=== PATIENT | male | born 1990 | race Two or more races ===

== ENCOUNTER → 2024-05-26 | Outpatient (CLI) | payer MEDICAID, SELFPAY ==
--- NOTE | 2024-05-26 09:10 | XR_ITS ---
Examination: PA lateral chest 2 views Technique: Upright PA lateral chest 2 views Exam date and time: 04/04/2024 0918 hrs. Comparison January 01, 2023 Indications: Left-sided chest pain 3 years Findings: Mild enlargement cardiac contour No pneumonia or pulmonary edema Increased AP dimension chest Impression: Mild enlargement cardiac contour No pneumonia or pulmonary edema
== END | disposition home or self-care (01) ==
PROVIDERS: PCP Family Medicine; Referring Provider Family Medicine; Visit Provider Family Medicine
DX: I51.7 Cardiomegaly (principal)
CPT/HCPCS: 71046

== ENCOUNTER 2024-07-15 15:01 | Emergency (ER) | payer MEDICAID, SELFPAY ==
--- NOTE | 2024-07-15 15:03 | EKG_ITS ---
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
[2024-07-15 15:05] VITALS: BMI 58.8
[2024-07-15 15:11] VITALS: BP 142/96; PULSE 86; RESP 18; TEMP 37.5; O2SAT 95
--- NOTE | 2024-07-15 15:16 | XR_ITS ---
Examination: PA lateral chest 2 views TECHNIQUE: Upright PA lateral chest 2 views Exam date and time: July 15, 2024 1633 hours INDICATIONS: Chest pain today. FINDINGS: Poor inspiratory effort chest x-ray Normal heart size No pneumonia or pulmonary edema IMPRESSION: No pneumonia or pulmonary edema
--- NOTE | 2024-07-15 15:17 | PD.EDRME ---
Rapid Medical Screening Exam RME Arrival date/time: 07/15/24 15:01 33-year-old male presents to the emergency department today for complaints of palpitations and chest pressure today Chief Complaint: Chest Pain Time Seen by Provider: 07/15/24 15:07 Vital signs: Vital Signs Temperature 99.5 F 07/15/24 15:11 Pulse Rate 86 07/15/24 15:11 Respiratory Rate 18 07/15/24 15:11 Blood Pressure 142/96 H 07/15/24 15:11 Pulse Oximetry (%) 95 07/15/24 15:11 Oxygen Delivery Method Room Air 07/15/24 15:11
[2024-07-15 16:13] LABS: Basophils # (Auto) 0.1 Thou/mm3 (0.0-0.2); Basophils % (Auto) 1 % (0-2.5); Eosinophils # (Auto) 0.3 Thou/mm3 (0.0-0.5); Eosinophils % (Auto) 3 % (0-10); Hematocrit 45.8 % (41.0-53.0); Hemoglobin 16.2 g/dL (13.5-16.0); Immature Granulocytes % (Auto) 1 % (0-0); Immature Granulocytes Auto 0.05 Thou/mm3 (0.00-0.00); Lymphocytes % (Auto) 23 % (10-50); Mean Corpuscular HGB Conc 35.4 g/dl (31.0-37.0); Mean Corpuscular Hemoglobin 28.1 pg (25.0-35.0); Mean Corpuscular Volume 79 fL (80-100); Monocytes # (Auto) 0.6 Thou/mm3 (0.0-0.8); Monocytes % (Auto) 7 % (0-12); Neutrophils # (Auto) 5.9 Thou/mm3 (1.8-7.7); Neutrophils % (Auto) 66 % (37-80); Nucleated Red Blood Cell % 0 /100 WBC (0); Platelet Count 300 Thou/mm3 (140-440); RDW Standard Deviation 37.7 fL (35.1-43.9); Red Blood Count 5.77 Miln/mm3 (4.50-5.90); White Blood Count 8.9 Thou/mm3 (3.8-10.6)
[2024-07-15 16:13] LABS: Collection Type, Urine Clean Catch
[2024-07-15 16:23] LABS: Amphetamine/Methamp Scrn,U Negative (Negative); Barbiturate Screen,Urine Negative (Negative); Benzodiazepines Screen,Urine Negative (Negative); Benzoylecgonine Screen, Ur Negative (Negative); Fentanyl Screen,Urine Negative (Negative); Opiate Screen,Urine Negative (Negative); THC Screen,Urine Negative (Negative)
[2024-07-15 16:34] LABS: Bilirubin,Urine Negative (Negative); Blood,Urine Negative (Negative); Clarity,Urine Clear (Clear/Hazy); Color,Urine Lt-Yellow (Lt Yel-Yel); Glucose, Urine Negative (Negative); Ketones,Urine 1+ (Negative); Leukocyte Esterase,Urine Negative (Negative); Nitrite,Urine Negative (Negative); PH,Urine 6.5 (5.0-7.0); Protein,Urine Negative (Neg - Trace); RBC,Urine 5 /hpf (0-3); Specific Gravity,Urine 1.029 (1.001-1.035); Squamous Epithelial Cell,Urine 1 /hpf (0-5); WBC,Urine 5 /hpf (0-5)
[2024-07-15 16:35] LABS: B-Type Natriuretic Peptide < 20 pg/mL (0-100)
[2024-07-15 16:36] LABS: Alanine Aminotransferase 22 U/L (10-49); Albumin, Serum 4.6 gm/dL (3.5-5.0); Albumin/Globulin Ratio 1.7 (1.2-2.2); Alkaline Phosphatase 92 U/L (46-116); Anion Gap 8 (7-16); Aspartate Amino Transferase 17 U/L (0-34); BUN/Creatinine Ratio 15 Ratio (12-20); Bilirubin,Total 0.9 mg/dL (0.3-1.2); Blood Urea Nitrogen 17 mg/dL (9-23); Calcium 9.5 mg/dL (8.3-10.6); Calcium (Corrected) 9.5 mg/dL (8.5-10.1); Chloride 107 mMol/L (98-107); Creatinine (Component) 1.1 mg/dL (0.6-1.3); Estimated Creatinine Clearance 177.2 mL/min (>60); Globulin 2.7 gm/dL (2.3-3.5); Glucose 93 mg/dL (74-106); Magnesium 1.9 mg/dL (1.6-2.6); Osmolality,Calculated 282 (275-295); Sodium 141 mMol/L (136-145); Total Protein 7.3 gm/dL (5.7-8.2); Troponin I < 0.002 ng/mL (0.0-0.045); eGFR > 60 See Note
[2024-07-15 19:28] VITALS: BP 129/83; PULSE 77; RESP 18; TEMP 36.9; O2SAT 99
--- NOTE | 2024-07-15 19:37 | PD.EDADULT ---
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 The patient never had an angio gram or other intervention. Patient is awake alert oriented denies nausea vomiting headache shortness of breath or difficulty breathing. RME / HPI RME / HPI narrative: 07/15/24 15:01 33-year-old male presents to the emergency department today for complaints of palpitations and chest pressure today Related Data Previous Rx's ?Medication ?Instructions ?Recorded ascorbic acid (vitamin C) 250 mg 500 mg (2 x 250 mg) PO BID #60 tabs 03/26/23 tablet (Vitamin C) sennosides 8.6 mg tablet (Senna 8.6 mg PO QDAY #15 tabs 03/26/23 Lax) zinc sulfate 50 mg zinc (220 mg) 220 mg (4.4 x 50 mg zinc (220 mg)) 03/26/23 capsule PO QDAY #30 caps cephalexin 500 mg tablet 500 mg PO TID #21 tabs 09/27/23 IBU 800 mg tablet (ibuprofen) 800 mg PO Q6H PRN pain #30 tabs 10/13/23 ondansetron 4 mg disintegrating 4 mg PO Q8H PRN nausea and 10/13/23 tablet vomiting #10 tabs Allergies Allergy/AdvReac Type Severity Reaction Status Date / Time No Known Allergies Allergy Verified 10/13/23 16:12 Review of Systems Review of Systems Narrative Review of Systems: GEN: No fever, no chills, no weight loss EYES: No discharge, no visual changes, no pain HEENT: No ear pain, no congestion, no sore throat PULM: No shortness of breath, no cough, no congestion CV: + chest pain, no dyspnea on exertion, no palpitations GI: No nausea, no vomiting, no diarrhea, no pain, no constipation : No frequency, no urgency, no dysuria MUSC/SKEL: No joint pain, no back pain SKIN: No rash PSYCH: No hallucinations, no depression HEME/LYMPH: No easy bleeding or bruising tendencies NEURO: No weakness, no headache Past Medical History Past Medical History NEUROLOGIC: Negative Seizures CARDIAC: Negative Cardiac Disorders or Congestive Heart Failure RESPIRATORY: Negative Chronic Obstructive Pulmonary Disease (COPD) or Asthma GENITOURINARY: Negative Renal Disease ENDOCRINE: Negative Diabetes Mellitus Type 1 or Diabetes Mellitus Type 2 HEMATOLOGIC: Negative Sickle Cell Disease Social History SMOKING STATUS: Former smoker SECOND HAND EXPOSURE: No SUBSTANCE USE: does not use ED Exam Narrative Physical exam: [General: Morbidly obese not in cot no acute distress Head normocephalic HEENT: Within acceptable limits Neck is supple nontender Chest equal chest rise nontender to palpation Respiratory: Clear to auscultation no wheezes crackles or rubs CV: Rate rhythm is regular no murmurs rubs or clicks Abdomen is grossly distended secondary to body habitus soft nontender no masses positive bowel sounds all 4 quadrants Back: No CVA tenderness no spinous process tenderness from cervical spine thoracic and lumbar spine Skin: Intact no petechiae rash induration ulceration or crepitus Extremities: Moving all extremity against resistance cap refill less than 2 seconds neurosensory intact Neuro: Awake alert oriented x3 Glascow coma 15 no focal deficits] Course Quality Measures none Orders Category Date Time Status EKG (ED ONLY) *Do not use* NOW Care 07/15/24 15:03 Completed EKG (ED Only) Stat Exams 07/15/24 15:03 Draft XR chest 2V Stat Exams 07/15/24 15:16 Completed B-Type Natriuretic Peptide Stat Lab 07/15/24 15:49 Completed CBC Stat Lab 07/15/24 15:49 Completed Comprehensive Metabolic Panel Stat Lab 07/15/24 15:49 Completed Drug Screen,Urine Stat Lab 07/15/24 15:59 Completed Magnesium Stat Lab 07/15/24 15:49 Completed Troponin I Stat Lab 07/15/24 15:49 Completed Urinalysis Stat Lab 07/15/24 15:59 Completed Vital Signs Vital signs: Vital Signs Temperature 99.5 F 07/15/24 15:11 Pulse Rate 86 07/15/24 15:11 Respiratory Rate 18 07/15/24 15:11 Blood Pressure 142/96 H 07/15/24 15:11 Pulse Oximetry (%) 95 07/15/24 15:11 Oxygen Delivery Method Room Air 07/15/24 15:11 Discharge Plan Plan Patient Disposition: HOME (Self Care) Patient condition on transfer: Stable Prescriptions/Referrals Prescriptions/Med Rec: No Action sennosides [Senna Lax] 8.6 mg Tablet 8.6 mg PO QDAY Qty: 15 0RF ascorbic acid (vitamin C) [Vitamin C] 250 mg Tablet 500 mg PO BID Qty: 60 0RF zinc sulfate 50 mg zinc (220 mg) Capsule 220 mg PO QDAY Qty: 30 0RF ibuprofen [IBU] 800 mg tablet 800 mg PO Q6H PRN (Reason: pain) Qty: 30 0RF ondansetron 4 mg tablet,disintegrating 4 mg PO Q8H PRN (Reason: nausea and vomiting) Qty: 10 0RF cephalexin 500 mg tablet 500 mg PO TID Qty: 21 0RF Referrals: Rachid Durán MD [Primary Care Provider] - In 1 week Problem List Clinical Impression: Chest pain Patient/Caregiver Discharge Instructions Education Materials: ED Chest Pain, Uncertain Cause Print Language: Arabic Stand Alone Forms: Benita Award Info., Work/School Release, Patient Portal Info Letter PA/FIELD REPRESENTATIVE Supervising Physician PA/FIELD REPRESENTATIVE Supervising Physician: Boni Alonzo [facility] EKG EKG Interpretation(s): EKG performed at 1508 shows a ventricular rate of 88 ID interval 136 QRS of 106 QTc of 392 this normal sinus rhythm Labs Lab(s) Interpretation(s): CBC shows no acute leukocytosis hemoconcentrated at 16.2 crit at 45.8. No thrombocytopenia CMP shows no significant transaminitis T. bili elevation electrolyte imbalances or renal impairment Troponin is undetectable BNP is negative Urine is negative with exception of 1+ ketones. UDS is negative. Imaging Imaging interpretation: Interpreted by me Imaging Interpretation(s): Chest x-ray is unremarkable as interpreted by me read by radiology. Medication Administration(s) none Diagnosis Differential Diagnosis ED Complaint MDM: ACS IA pneumonia
== END 2024-07-15 19:53 | disposition home or self-care (01) ==
PROVIDERS: Nurse Practitioner Primary Care; Emergency Provider Emergency Medicine; PCP Family Medicine
DX: R07.9 Chest pain, unspecified (principal); R00.2 Palpitations
CPT/HCPCS: 36415; 71046; 80053; 80307; 81001; 83735; 83880; 84484; 85025; 93005; 99283

== ENCOUNTER → 2024-07-24 | Outpatient (CLI) | payer MEDICAID, SELFPAY ==
--- NOTE | 2024-07-24 09:04 | XR_ITS ---
Examination: Testicular sonography complete TECHNIQUE: Grayscale sonographic images testes, assessment arterial inflow venous outflow Doppler spectral analysis carful analysis Exam date and time: July 24, 2024 0917 hours INDICATIONS: Onset right testicular pain beginning several years ago. FINDINGS: Right testis 4.2 cm epididymis 13 mm Arterial flow testicle. No testicular mass Mild lateral varicocele Mild hydrocele Left testis 4.1 cm epididymis 16mm Arterial flow testicle. No testicular mass. Mild lateral varicocele Mild hydrocele IMPRESSION: No testicular torsion or testicular mass Mild bilateral varicoceles
== END | disposition home or self-care (01) ==
PROVIDERS: PCP Family Medicine; Referring Provider Family Medicine; Visit Provider Family Medicine
DX: I86.1 Scrotal varices (principal)
CPT/HCPCS: 76870

== ENCOUNTER 2024-10-17 15:35 | Emergency (ER) | payer MEDICAID, SELFPAY ==
[2024-10-17 15:36] VITALS: BMI 58.5
[2024-10-17 16:02] VITALS: BP 152/109; PULSE 84; RESP 17; TEMP 37.3; O2SAT 99
--- NOTE | 2024-10-17 16:23 | EKG_ITS ---
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
--- NOTE | 2024-10-17 16:24 | EDRME_ITS ---
<Statement entered by Ruth Bergeron MD - 10/21/24 06:44> As co-signing physician, I was present and available for consult prn. I concur with the plan and care as documented by the midlevel provider. Rapid Medical Screening Exam RME Arrival date/time: 10/17/24 15:35 CC: Headache HPI ongoing for the past 4 days patient is morbidly obese obese with a BMI of 58, has had a headache for the past 5 days no history of any medications is seen by [facility] does not take any hypertensive medications noted to be 150/110 today. Patient is very anxious and has nausea vomiting when he gets excited currently has mild nausea. Chief Complaint: General Adult/Misc Complain Time Seen by Provider: 10/17/24 16:20 Vital signs: Vital Signs Temperature 99.2 F 10/17/24 16:02 Pulse Rate 84 10/17/24 16:02 Respiratory Rate 17 10/17/24 16:02 Blood Pressure 152/109 H 10/17/24 16:02 Pulse Oximetry (%) 99 10/17/24 16:02 Oxygen Delivery Method Room Air 10/17/24 16:02
[2024-10-17] MEDS: ONDANSETRON ODT 4 MG TABRAP PO (16:32)
[2024-10-17 16:33] VITALS: BP 146/104; PULSE 73
[2024-10-17 16:43] LABS: Collection Type, Urine Clean Catch
[2024-10-17 16:55] LABS: Bacteria,Urine Rare; Bilirubin,Urine Negative (Negative); Blood,Urine Negative (Negative); Clarity,Urine Clear (Clear/Hazy); Color,Urine Yellow (Lt Yel-Yel); Glucose, Urine Negative (Negative); Ketones,Urine Negative (Negative); Leukocyte Esterase,Urine Negative (Negative); Nitrite,Urine Negative (Negative); PH,Urine 6.0 (5.0-7.0); Protein,Urine Trace (Neg - Trace); RBC,Urine 6 /hpf (0-3); Specific Gravity,Urine 1.029 (1.001-1.035); Squamous Epithelial Cell,Urine 2 /hpf (0-5); Urobilinogen,Urine Negative mg/dL (0.0-1.0); WBC,Urine 2 /hpf (0-5)
[2024-10-17 16:56] LABS: Amphetamine/Methamp Scrn,U Negative (Negative); Barbiturate Screen,Urine Negative (Negative); Benzodiazepines Screen,Urine Negative (Negative); Benzoylecgonine Screen, Ur Negative (Negative); Fentanyl Screen,Urine Negative (Negative); Opiate Screen,Urine Negative (Negative); THC Screen,Urine Negative (Negative)
[2024-10-17 17:10] LABS: Basophils # (Auto) 0.1 Thou/mm3 (0.0-0.2); Basophils % (Auto) 1 % (0-2.5); Eosinophils # (Auto) 0.3 Thou/mm3 (0.0-0.5); Eosinophils % (Auto) 4 % (0-10); Hematocrit 46.8 % (41.0-53.0); Hemoglobin 16.1 g/dL (13.5-16.0); Immature Granulocytes Auto 0.04 Thou/mm3 (0.00-0.00); Lymphocytes # (Auto) 2.4 Thou/mm3 (1.0-4.8); Lymphocytes % (Auto) 27 % (10-50); Mean Corpuscular HGB Conc 34.4 g/dl (31.0-37.0); Mean Corpuscular Hemoglobin 27.7 pg (25.0-35.0); Mean Corpuscular Volume 81 fL (80-100); Monocytes # (Auto) 0.6 Thou/mm3 (0.0-0.8); Monocytes % (Auto) 7 % (0-12); Neutrophils # (Auto) 5.5 Thou/mm3 (1.8-7.7); Neutrophils % (Auto) 61 % (37-80); Nucleated Red Blood Cell # 0.00 Thou/mm3 (0.00-0.00); Nucleated Red Blood Cell % 0 /100 WBC (0); Platelet Count 282 Thou/mm3 (140-440); RDW Standard Deviation 39.3 fL (35.1-43.9); Red Blood Count 5.81 Miln/mm3 (4.50-5.90); White Blood Count 9.0 Thou/mm3 (3.8-10.6)
[2024-10-17 17:27] LABS: Alanine Aminotransferase 26 U/L (10-49); Albumin, Serum 4.6 gm/dL (3.5-5.0); Albumin/Globulin Ratio 1.7 (1.2-2.2); Alkaline Phosphatase 88 U/L (46-116); Anion Gap 10 (7-16); Aspartate Amino Transferase 17 U/L (0-34); BUN/Creatinine Ratio 8 Ratio (12-20); Bilirubin,Total 1.0 mg/dL (0.3-1.2); Blood Urea Nitrogen 9 mg/dL (9-23); Calcium 9.3 mg/dL (8.3-10.6); Calcium (Corrected) 9.3 mg/dL (8.5-10.1); Carbon Dioxide 25.3 mMol/L (20.0-31.0); Chloride 108 mMol/L (98-107); Creatinine (Component) 1.1 mg/dL (0.6-1.3); Estimated Creatinine Clearance 176.7 mL/min (>60); Globulin 2.7 gm/dL (2.3-3.5); Glucose 90 mg/dL (74-106); LDH (Lactate Dehydrogenase) 158 U/L (120-246); Magnesium 1.7 mg/dL (1.6-2.6); Osmolality,Calculated 283 (275-295); Potassium 3.7 mMol/L (3.4-5.1); Sodium 143 mMol/L (136-145); Total Protein 7.3 gm/dL (5.7-8.2); Troponin I < 0.020 ng/mL (0.0-0.045); eGFR > 60 See Note
[2024-10-17 17:59] LABS: B-Type Natriuretic Peptide < 20 pg/mL (0-100)
[2024-10-17 18:00] VITALS: BP 131/87; PULSE 77; RESP 18; TEMP 37.4; O2SAT 97
[2024-10-17] MEDS: KETOROLAC INJ 60 MG/2 ML VIAL 30 MG IM (18:15)
--- NOTE | 2024-10-17 18:22 | XR_ITS ---
Examination: CT brain head without contrast. 2-D sagittal coronal reconstructions Date and time of exam:October 17, 2024, 1917 hours INDICATIONS: Headache dizziness beginning 3 days ago CTDI: vol (mGy):61.5 DLP: (mGycm):1246 Technique: Multiple CT axial sections of the brain have been obtained, 5 mm slice thickness. Contrast has not been administered. 2-D sagittal, coronal reconstructions have been obtained Low dose protocols were performed. One or more of the following dose reduction techniques were used; automated exposure control, adjustment of the mA and/or KV according to patient size, use of iterative reconstruction technique. Findings: No significant ventricular enlargement. Intra-axial or extra-axial hemorrhage density is not seen. No mass effect or midline shift Basal cisterns are not remarkable. Fourth ventricle is midline. Cranial vault intact. Impression: Negative for acute hemorrhage, mass effect or midline shift Bilateral chronic mastoiditis Mild acute left mastoiditis Advise clinical correlation and follow up accordingly
--- NOTE | 2024-10-17 18:23 | EDNOTE_ITS ---
ED General RME/HPI General Chief complaint: General Adult/Misc Complain Stated complaint: NECK STIFFNESS, FEVER, BODY ACEHS, ESCALANTE X2 DAY Time Seen by Provider: 10/17/24 16:20 Arrival date/time: 10/17/24 15:35 RME / HPI RME / HPI narrative: 33-year-old male patient with significant history of morbid obesity, BMI of 58, came in for evaluation regarding headache. Patient's been having headache for the last 5 days, described as dull ache, severity moderate. Headache radiates to the neck. Patient denies any fever denies any head trauma denies any cough denies any chest pain denies any abdominal pain denies any other complaints. No medication was taken prior to arrival. Related Data Previous Rx's ?Medication ?Instructions ?Recorded ascorbic acid (vitamin C) 250 mg 500 mg (2 x 250 mg) P O BID #60 tabs 03/26/23 tablet (Vitamin C) sennosides 8.6 mg tablet (Senna 8.6 mg PO QDAY #15 tab s 03/26/23 Lax) zinc sulfate 50 mg zinc (220 mg) 220 mg (4.4 x 50 mg z inc (220 mg)) 03/26/23 capsule PO QDAY #30 caps cephalexin 500 mg tablet 500 mg PO TID #21 tabs 09/26 IBU 800 mg tablet (ibuprofen) 800 mg PO Q6H PRN pain # 30 tabs 10/13/23 ondansetron 4 mg disintegrating 4 mg PO Q8H PRN nausea and 10/13/23 tablet vomiting #10 tabs amoxicillin 875 mg-potassium 1 tab PO BID #14 tabs 04/12 clavulanate 125 mg tablet diphenhydramine HCl 25 mg capsule 25 mg PO TID PRN all ergic reaction 10/17/24 (Benadryl) #20 caps ibuprofen 800 mg tablet 800 mg PO Q8H PRN pain #30 t abs 10/17/24 Allergies Allergy/AdvReac Type Severity Reaction Status Date / Time No Known Allergies Allergy Verified 10/17/24 15:36 Review of Systems Review of Systems Narrative Review of Systems: Review of system reviewed and within normal limits except mentioned in HPI ED Exam Narrative Physical exam: VITAL SIGNS: Reviewed. GENERAL APPEARANCE: Alert and interactive, follows commands, no acute distress, HEAD AND FACE: Non-traumatic. ENT: PERRL, pink conjunctivitis, eyelid no trauma, Mucous membrane moist. NECK: Supple, nontender, no nuchal rigidity. CHEST: No tenderness, no crepitus, no paradoxical movement, no retractions. LUNGS: Clear, well ventilated, symmetric, no rales, no wheezing, no ronchi, no stridor, good breath sounds bilaterally. HEART: Regular rate, regular rhythm, no murmur, no gallops. ABDOMEN: Soft, positive bowel sounds, nondistended, no guarding, nontender, no rebound, no masses, RECTAL: Deferred. GENITAL: Deferred. NEUROLOGICAL: Gross motor function intact sensory function intact, Appropriate for age. MUSCULOSKELETAL: low back nontender, full range of motion. EXTREMITIES: Nontender, full range of motion. SKIN: Color pink, dry, no rash, no lacerations, no abrasions, no contusions. LYMPHATICS: Deferred. Course Quality Measures none Orders Category Date Time Status EKG (ED ONLY) *Do not use* NOW Care 10/17/24 16:[address] head/brain wo con Stat Exams 10/17/24 18:22 Completed EKG (ED Only) Stat Exams 10/17/24 16:23 Draft B-Type Natriuretic Peptide Stat Lab 10/17/24 16:38 Completed CBC Stat Lab 10/17/24 16:38 Completed Comprehensive Metabolic Panel Stat Lab 10/17/24 16:38 Completed Drug Screen,Urine Stat Lab 10/17/24 16:34 Completed LDH (Lactate Dehydrogenase) Stat Lab 10/17/24 16:38 Completed Magnesium Stat Lab 10/17/24 16:38 Completed Troponin I Stat Lab 10/17/24 16:38 Completed Urinalysis Stat Lab 10/17/24 16:34 Completed Amoxicillin/Pot Clav 875 [Augmentin 875] Med 10/17/24 19:42 Discontinued 1 tab PO X1 ONE DiphenhydrAMINE [Benadryl] Med 10/17/24 18:22 Discontinued 50 mg PO X1 ONE Ketorolac Inj [Toradol Inj] Med 10/17/24 18:09 Discontinued 30 mg IM X1 ONE Metoclopramide [Reglan] Med 10/17/24 18:22 Discontinued 10 mg PO X1 ONE Ondansetron Odt [Zofran Odt] Med 10/17/24 16:25 Discontinued 4 mg PO X1 ONE hydrALAZINE HCL [Apresoline] Med 10/17/24 16:23 Discontinued 25 mg PO X1 ONE Vital Signs Vital signs: Vital Signs Temperature 99.2 F 10/17/24 16:02 Pulse Rate 84 10/17/24 16:02 Respiratory Rate 17 10/17/24 16:02 Blood Pressure 152/109 H 10/17/24 16:02 Pulse Oximetry (%) 99 10/17/24 16:02 Oxygen Delivery Method Room Air 10/17/24 16:02 Discharge Plan Plan Patient Disposition: HOME (Self Care) Discharge Disposition comment: Stable Prescriptions/Referrals Prescriptions/Med Rec: New amoxicillin-pot clavulanate 875-125 mg tablet 1 tab PO BID Qty: 14 0RF diphenhydramine HCl [Benadryl] 25 mg capsule 25 mg PO TID PRN (Reason: allergic reaction) Qty: 20 0RF ibuprofen 800 mg tablet 800 mg PO Q8H PRN (Reason: pain) Qty: 30 0RF No Action sennosides [Senna Lax] 8.6 mg Tablet 8.6 mg PO QDAY Qty: 15 0RF ascorbic acid (vitamin C) [Vitamin C] 250 mg Tablet 500 mg PO BID Qty: 60 0RF zinc sulfate 50 mg zinc (220 mg) Capsule 220 mg PO QDAY Qty: 30 0RF ibuprofen [IBU] 800 mg tablet 800 mg PO Q6H PRN (Reason: pain) Qty: 30 0RF ondansetron 4 mg tablet,disintegrating 4 mg PO Q8H PRN (Reason: nausea and vomiting) Qty: 10 0RF cephalexin 500 mg tablet 500 mg PO TID Qty: 21 0RF Referrals: Rachid Durán MD [Primary Care Provider] - In 1 week Problem List Clinical Impression: Headache, Sinusitis Patient/Caregiver Discharge Instructions Discharge Activity: activity as tolerated Education Materials: ED Sinusitis (Antibiotic Treatment) Additional Instructions: Thank you for the opportunity for serving you today. You are stable for discharged . You are advised to: Follow-up with your PCP in 1 to 2 days Return to ED for worsening of symptoms Increase oral fluids Take medication as prescribed Print Language: Belarusian Stand Alone Forms: Benita Award Info., Patient Portal Info Letter PA/DIRECTOR CHILD ABUSE THERAPY Supervising Physician RUPALI/DARLENE Supervising Physician: Bri HILL MDM Narrative [facility] hospital course: 33-year-old male patient with significant history of morbid obesity, BMI of 58, came in for evaluation regarding headache. Patient's been having headache for the last 5 days, described as dull ache, severity moderate. Headache radiates to the neck. Patient denies any fever denies any head trauma denies any cough d enies any chest pain denies any abdominal pain denies any other complaints. No medication was taken prior to arrival. Patient's workup today came back unremarkable except for a CT scan that showed Negative for acute hemorrhage, mass effect or midline shift Bilateral chronic mastoiditis Mild acute left mastoiditis Advise clinical correlation and follow up accordingly EKG showed normal sinus rhythm, ventricular rate of 81 bpm, no ST segment elevation or depression noted. Results discussed with the patient. Patient was given Augmentin Benadryl hydralazine Toradol IM Reglan and Zofran with complete resolution of symptoms. Patient appears nontoxic and hemodynamically stable .Decision to discharge the patient. The patient/family was given an opportunity to ask questions and understood their discharge instructions. Discharge instructions specifically included follow up provider and time frame, current and/or new medications and possible side effects, indications for sooner follow up or return to the emergency department, and the expected course of current diagnosis. Patient reports feeling better as well and giving evidence of significant clinical improvement, I believe patient is now a candidate for discharge. Medication Administration(s) Medication Administration History Discontinued Medications Amoxicillin/Clavulanate Potassium (Amoxicillin/Pot Clav 875 Tablet) 1 tab PO X1 ONE Stop: 10/17/24 19:43 Diphenhydramine HCl (Diphenhydramine 25 Mg Capsule) 50 mg PO X1 ONE Stop: 10/17/24 18:23 Last Admin: 10/17/24 19:22 Dose: 50 mg Documented By: PALMA Hydralazine HCl (Hydralazine Hcl 25 Mg Tablet) 25 mg PO X1 ONE Stop: 10/17/24 16:24 Last Admin: 10/17/24 16:33 Dose: 25 mg Documented By: CANDIDO Ketorolac Tromethamine (Ketorolac Inj 60 Mg/2 Ml Vial) 30 mg IM X1 ONE Stop: 10/17/24 18:10 Last Admin: 10/17/24 18:15 Dose: 30 mg Documented By: CANDIDO Metoclopramide HCl (Metoclopramide 5 Mg Tablet) 10 mg PO X1 ONE Stop: 10/17/24 18:23 Last Admin: 10/17/24 19:22 Dose: 10 mg Documented By: PALMA Ondansetron HCl (Ondansetron Odt 4 Mg Tabrap) 4 mg PO X1 ONE; Protocol Stop: 10/17/24 16:26 Last Admin: 10/17/24 16:32 Dose: 4 mg Documented By: CANDIDO
[2024-10-17] MEDS: METOCLOPRAMIDE 5 MG TABLET 10 MG PO (19:22)
[2024-10-17] MEDS: AMOXICILLIN/POT CLAV 875 TABLET 1 TAB PO (19:50)
== END 2024-10-17 19:51 | disposition home or self-care (01) ==
PROVIDERS: Registered Nurse General Practice; Emergency Provider Family Medicine; PCP Family Medicine
DX: J32.9 Chronic sinusitis, unspecified (principal); H70.13 Chronic mastoiditis, bilateral; H70.002 Acute mastoiditis without complications, left ear; R94.31 Abnormal electrocardiogram [ECG] [EKG]
CPT/HCPCS: 36415; 70450; 80053; 80307; 81001; 83615; 83735; 83880; 84484; 85025; 93005; 96372; 99283; J1885; Q0162; A9270

== ENCOUNTER → 2025-02-24 | Outpatient (CLI) | payer MEDICAID, SELFPAY ==
--- NOTE | 2025-02-24 15:22 | XR_ITS ---
Examination: Foot, left, 3 views Technique: AP, oblique, lateral views foot, 3 views Date and time of exam: February 24, 2025, 1528 hours INDICATIONS: Toe pain beginning 10 days ago. FINDINGS: Mild osteopenia No acute fracture No dislocation Arthritic change talonavicular and navicular cuneiform joints IMPRESSION: No acute fracture
== END | disposition home or self-care (01) ==
PROVIDERS: PCP Family Medicine; Referring Provider Family Medicine; Visit Provider Family Medicine
DX: M25.672 Stiffness of left ankle, not elsewhere classified (principal)
CPT/HCPCS: 73630

== ENCOUNTER → 2025-03-17 | Outpatient (CLI) | payer MEDICAID, SELFPAY ==
--- NOTE | 2025-03-17 09:18 | XR_ITS ---
EXAMINATION: Sinus series 3 views TECHNIQUE: Raúl Russell lateral sinus series 3 views Date and time: March 17, 2025, 1003 hours INDICATIONS: Sinus pressure and headaches beginning 2 weeks ago. 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
== END | disposition home or self-care (01) ==
PROVIDERS: PCP Family Medicine; Referring Provider Family Medicine; Visit Provider Family Medicine
DX: J32.8 Other chronic sinusitis (principal)
CPT/HCPCS: 70220